=== PATIENT | male | born 1960 | race Caucasian/White ===

== ENCOUNTER 2018-08-10 03:57 | Emergency (ER) | payer OTHER, SELFPAY ==
[2018-08-10 04:00] VITALS: BP 142/76; PULSE 78; RESP 22; TEMP 38.8; O2SAT 96; BMI 27.8
[2018-08-10] MEDS: ACETAMINOPHEN 325 MG TABLET 650 MG PO (04:14)
--- NOTE | 2018-08-10 04:28 | ED.URI ---
HPI - URI/Sore Throat General Chief Complaint: Upper Respiratory Symptoms Stated Complaint: THINKS FLU CHEST CONGESTION NAUSEA Time Seen by Provider: 08/10/18 04:11 Source: patient Mode of arrival: ambulatory Limitations: no limitations History of Present Illness HPI Narrative: Patient is a 57-year-old male who presents with high-grade fever upper respiratory symptoms and some nausea. It has been ongoing for the last 5 days. His now also has symptoms. He denies any shortness of breath but has significant body aches. The currently febrile last dose of ibuprofen was about 4:00 p.m.. Complaint: fever and nasal congestion Onset (ago): day(s) (4) Severity: severe Relieving factors: nothing Related Data Previous Rx's Medication Instructions Recorded ondansetron 4 mg PO Q6-8H PRN #10 tab 08/10/18 Allergies Allergy/AdvReac Type Severity Reaction Status Date / Time No Known Drug Allergies Allergy Verified 08/10/18 04:23 Review of Systems Review of Systems ROS Unobtainable: All systems reviewed & are unremarkable except as noted in HPI and below Constitutional Reports body ache(s), Reports chills, Reports headache(s), Reports lethargy and Reports malaise ENT Ears, Nose, Mouth, and Throat: Reports headache(s) Cardiovascular Denies chest pain, Denies irregular heart rhythm, Denies lightheadedness, Denies palpitations and Denies orthopnea Respiratory Denies change in phlegm color, Reports cough, Denies hemoptysis and Denies wheezing Gastrointestinal Gastrointestinal: Denies abdominal pain, Denies change in bowel habits, Denies diarrhea, Denies nausea and Denies vomiting Musculoskeletal Denies back pain, Denies muscle weakness, Denies numbness and Denies tingling Integumentary/Breasts Denies pruritus, Denies erythema, Denies rash and Denies wounds Neurologic Reports headache(s), Denies numbness and Denies tingling Endocrine Denies palpitations Allergic/Immunologic Denies wheezing PFSH Medical History Hypertension (Acute) Social History marital status: Smoking Status: Never smoker alcohol intake: never substance use type: does not use Social History marital status: Smoking Status: Never smoker alcohol intake: never substance use type: does not use Exam Initial Vital Signs Initial Vital Signs: Vital Signs Temperature 102 F H 08/10/18 04:00 Pulse Rate 78 08/10/18 04:00 Respiratory Rate 22 08/10/18 04:00 Blood Pressure 142/76 H 08/10/18 04:00 Pulse Oximetry 96 08/10/18 04:00 GENERAL: Middle-aged male appears to not feel well curled on gurney alert and oriented easily arousable HEENT: Head atraumatic,EOMI, pupils reactive neck is supple CARDIOVASCULAR: Regular rate and rhythm without murmurs, rubs or gallops. RESPIRATORY: Breath sounds equal bilaterally, no wheezes rales or rhonchi. ABDOMEN: Soft, nontender. Normoactive bowel sounds all 4 quadrants. No guarding or rebound. EXTREMITIES: Normal range of motion, no clubbing or edema. Neurovascularly intact NEUROLOGICAL: Alert and oriented x4.Normal gait and speech. SKIN: Warm, dry, no laceration, no petechiae, no rashes or lesions. Course Orders Ordered: ED Orders 08/10/18 04:04 FLU A and B [Influenza A and B by PCR Rapid] Stat Discontinued Medications Acetaminophen (Tylenol) 650 mg PO NOW ONE Stop: 08/10/18 04:12 Last Admin: 08/10/18 04:14 Dose: 650 mg Ketorolac Tromethamine (Toradol) 60 mg IM NOW ONE Stop: 08/10/18 04:26 Last Admin: 08/10/18 04:50 Dose: 60 mg Ondansetron HCl (Zofran Odt) 4 mg SL NOW ONE Stop: 08/10/18 04:26 Last Admin: 08/10/18 04:50 Dose: 4 mg Vital Signs - 8 hr 08/10/18 04:00 Temperature 102 F H Pulse Rate 78 Respiratory Rate 22 Blood Pressure 142/76 H Pulse Oximetry 96 [facility] - URI/Sore Throat Lab Data Attestation: I reviewed the patient's lab results. Lab Results 08/10/18 Range/Units 04:04 Influenza A & B (PCR) Positive, type a A (Negative) [facility] Narrative Medical decision making narrative: Discussed treatment for influenza. Discharge Plan Departure Patient Disposition: Home Clinical Impression: Influenza A Instructions: DI for Influenza -- Adult Activity Restrictions/Additional Instructions: *You have been diagnosed with influenza *What to do: Fever control, increase fluid intake with Gatorade or Gatorade like substance *Continue to take medications as directed Ibuprofen 600 mg every 6 hr if needed for pain or fever Tylenol 650 mg every 4-6 hours if needed for pain or fever Zofran 4 mg every 6-8 hours if needed for nausea or vomiting *Follow up with your primary care provider in 2-3 days *Return to ER if you should have increased shortness of breath, productive cough, severe headache or neck pain or any new, worsening or concerning symptoms Prescriptions: New ondansetron 4 mg tablet,disintegrating 4 mg PO Q6-8H PRN (Reason: nausea and vomiting) Qty: 10 RF: 0
[2018-08-10] MEDS: KETOROLAC 60 MG/2 ML VIAL IM (04:50)
[2018-08-10] MEDS: ONDANSETRON 4 MG ODT SL (04:50)
[2018-08-10 05:17] VITALS: BP 119/66; PULSE 76; RESP 18; TEMP 37.2; O2SAT 98
== END 2018-08-10 05:18 | disposition home or self-care (01) ==
PROVIDERS: Emergency Provider Emergency Medicine
DX: J11.1 Influenza due to unidentified influenza virus with other respiratory manifestations (principal)
CPT/HCPCS: 87400; 96372; 99282; 99283; J1885

== ENCOUNTER 2018-08-12 17:26 | Inpatient (IN) | payer OTHER, SELFPAY ==
[2018-08-12] VITALS (11 sets, daily range): BP systolic 105–137; BP diastolic 66–72; PULSE 75–84; RESP 15–30; TEMP 36.6–37.2; O2SAT 69–100; BMI 26.4
--- NOTE | 2018-08-12 | DI.ECHO.S_ITS ---
[facility]---------+ [facility] +---------+ : : [address] : [place] : : : : [id number] : : : : Phone: [phone] Echocardiogram Report + + :Name: CRIS ADAM Study Date: 08/13/2018 Height: 71 in : :[facility] Weight: 190 lb : : Gender: Male BSA: 2.1 m2 : :: 1960 Age: 57 yrs BP: 103/70 mmHg: :Reason For Study: Influenza : : Performed By: Chiquita Jimenez : :Referring: ALEX LALA : + + Interpretation Summary Normal left ventricle size with ejection fraction 60-65%. Mildly dilated left atrium. Mild mitral regurgitation. Procedure: A two-dimensional transthoracic echocardiogram with color flow and Doppler was performed. The study quality was technically good. There is no prior echocardiogram noted for this patient. The patient was in normal sinus rhythm during the exam. Left Ventricle: The left ventricle is normal in size. There is normal left ventricular wall thickness. The ejection fraction is estimated to be 60-65%. There are no focal wall motion abnormalities. Diastolic parameters suggest probable normal left ventricular diastolic function and normal filling pressures. Right Ventricle: The right ventricle grossly appears normal in size with probable normal systolic function. Atria: The left atrium is mildly dilated. Right atrial size is normal. The interatrial septum is intact with no evidence for an atrial septal defect. Mitral Valve: The mitral valve is grossly normal. There is mild mitral regurgitation. Aortic Valve: The aortic valve is trileaflet. The aortic valve opens well. No aortic regurgitation is present. Tricuspid Valve: The tricuspid valve is normal in structure and function. There is a trace or physiologic amount of tricuspid regurgitation. The right ventricular systolic pressure is estimated to be at least 30 mmHg based on an estimated right atrial pressure of 8 mm Hg. Pulmonic Valve: The pulmonic valve is not well seen, but is grossly normal. There is trace pulmonic regurgitation. Great Vessels: The aortic root is normal size. The dimensions of the ascending aorta are normal. The aortic arch is normal in size. The IVC is of normal diameter and collapses less than 50% with a sniff. This suggests a right atrial pressure of 8 mm Hg. Pericardium/ Pleura There is no pericardial effusion. MMode/2D Measurements & Calculations LVIDd: 5.0 cm Ao root diam: 3.3 cm LVIDs: 2.7 cm asc Aorta Diam: 2.9 cm FS: 45.0 % Ao Arch Diam (Prox Trans): 3.0 cm EPSS: 0.53 cm IVSd: 1.2 cm LVPWd: 0.98 cm LV parks. diameter/BSA (cm/m^2): 2.4 LV sys. diameter/BSA (cm/m^2): 1.3 LA dimension: 3.8 cm RA long axis: 5.4 cm LA A2 area: 23.0 cm2 RA area: 19.3 cm2 LA A4 area: 26.4 cm2 RA vol: 58.9 ml LA length (vol): 5.9 cm RA : 28.6 ml/m2 LA vol: 87.0 ml IVC diam: 2.1 cm LA vol index: 42.2 ml/m2 RVDd major: 5.4 cm RVD1 (basal): 3.7 cm RVD2 (mid): 3.2 cm Doppler Measurements & Calculations Ao V2 max: 150.8 cm/sec MV E max oliver: 98.5 cm/sec Ao V2 mean: 94.1 cm/sec MV A max oliver: 71.1 cm/sec Ao max P.1 mmHg MV E/A: 1.4 Ao mean P.3 mmHg Med Peak E' Oliver: 10.2 cm/sec Ao V2 VTI: 30.8 cm E/E' med: 9.6 Lat Peak E' Oliver: 10.8 cm/sec E/E' lat: 9.1 E/e' average: 9.4 MV dec time: 0.20 sec MV P1/2t: 60.5 msec TR max oliver: 236.8 cm/sec MV P1/2t max oliver: 98.9 cm/sec TR max P.4 mmHg MVA(P1/2t): 3.6 cm2 PA V2 max: 118.1 cm/sec PA V2 mean: 79.3 cm/sec PA mean P.9 mmHg PA Accel Time: 0.16 sec Electronically signed by: Merle Wheat on Reading Physician:08/13/2018 11:14 AM
--- NOTE | 2018-08-12 17:45 | DI.RAD.S_ITS ---
PROCEDURE: XR CHEST 1V INDICATIONS: shortness of breath, hypoxia, difficulty breathing influenza TECHNIQUE: One view of the chest was acquired. COMPARISON: None. FINDINGS: Surgical changes and devices: None. Lungs and pleura: Bilateral multifocal areas of consolidation involving the upper and lower lobes.. No pleural effusions or pneumothorax. There are scattered groundglass opacities Mediastinum: Mediastinal contours appear normal. Heart size is normal. Bones and chest wall: No suspicious bony lesions. Overlying soft tissues appear unremarkable. IMPRESSION: Multifocal bilateral areas of consolidation presumably pneumonia although recommend clinical correlation. Atypical/viral etiologies are differential. Cannot exclude developing diffuse alveolar damage/ARDS. Dictated by: Santo Spears M.D. on 08/12/2018 at 19:02 Approved by: Santo Spears M.D. on 08/12/2018 at 19:05
[2018-08-12 18:01] LABS: INR 1.2 (0.9-1.3); Prothrombin Time 13.3 SECONDS (10.1-12.7)
--- NOTE | 2018-08-12 18:03 | ED_ITS ---
HPI - Fever General Chief Complaint: Fever Stated Complaint: states severe flu Time Seen by Provider: 08/12/18 17:44 Source: patient Mode of arrival: ambulatory Limitations: no limitations History of Present Illness HPI Narrative: Patient is a 57-year-old male who arrives the Emergency Department today for evaluation of generalized weakness and problems breathing. Was seen here in the emergency department 2 days ago after having 4-5 days of body aches and fever. She was diagnosed with influenza. Was not discharged home with Tamiflu secondary to his lack of other medical conditions and also the length of time that he had been having symptoms. He states that since Monday especially over the past 24 hr he has had worsening symptoms to include dyspnea on exertion. No chest pain. Has not tried anything for his symptoms prior to arrival. Related Data Home Medications Medication Instructions Recorded Confirmed atorvastatin 40 mg PO DAILY 08/12/18 08/12/18 losartan 50 mg PO DAILY 08/12/18 08/12/18 Previous Rx's Medication Instructions Recorded ondansetron 4 mg PO Q6-8H PRN #10 tab 08/10/18 Allergies Allergy/AdvReac Type Severity Reaction Status Date / Time No Known Drug Allergies Allergy Verified 08/10/18 04:23 Review of Systems Constitutional Reports fatigue and Reports fever(s) Eyes Denies diplopia ENT Ears, Nose, Mouth, and Throat: Denies vertigo and Denies dizziness Cardiovascular Denies chest pain, Reports dyspnea and Reports dyspnea on exertion Respiratory Reports dyspnea, Reports dyspnea on exertion and Denies wheezing Gastrointestinal Gastrointestinal: Denies abdominal pain, Denies nausea and Denies vomiting Genitourinary Denies dysuria Musculoskeletal Denies myalgias and Denies arthralgias Integumentary/Breasts Denies rash Neurologic Denies vertigo and Denies dizziness Endocrine Reports fatigue Hematologic/Lymphatic Denies easy bleeding and Denies easy bruising Allergic/Immunologic Denies urticaria and Denies wheezing PFSH Medical History Hypertension (Acute) Social History marital status: Smoking Status: Never smoker alcohol intake: never substance use type: does not use Social History marital status: Smoking Status: Never smoker alcohol intake: never substance use type: does not use Exam Initial Vital Signs Initial Vital Signs: Vital Signs Pulse Rate 81 08/12/18 17:35 Respiratory Rate 20 08/12/18 17:35 Pulse Oximetry 69 L 08/12/18 17:35 Const General: cooperative, No comfortable, well groomed, in distress and ill appearing Orientation: alert, awake and oriented x3 HENMT Head: normal to inspection and normocephalic Nose: external nose normal Eyes Pupils: PERRL EOM: EOM intact bilaterally Chest Chest: normal inspection of the chest Resp Effort & Inspection: labored, respiratory distress, no retractions, tachypneic and no use of accessory muscles Auscultation: rhonchi Cardio Rate: regular rate Rhythm: regular rhythm Pulses: radial pulses present GI Inspection: non-distended Palpation: No soft, No firm and No tender Back/Spine/Pelvis Back: normal to inspection Skin Lesions: no lesions Rashes: no rashes Neuro General: alert, awake and oriented x3 Cognition: normal cognition Speech: speech normal Gait: normal gait Motor: muscle tone normal throughout Extrem General: normal to inspection, capillary refill normal and No cyanosis Psych Appearance: grossly normal and well kempt Course Orders Ordered: ED Orders 08/12/18 17:40 B Type Natriuretic Peptide Stat Complete Blood Count AUTO DIFF Stat Comprehensive Metabolic Panel Stat Lactate (Lactic Acid) Stat Magnesium Stat Partial Thromboplastin Time Stat Procalcitonin Stat Prothrombin Time INR Stat Troponin & CK Cardiac Panel Stat 08/12/18 17:44 Consult to Respiratory Therapy Evaluate & Treat EKG-12 Lead Stat 08/12/18 17:45 XR chest 1V Stat 08/12/18 17:46 Arterial Blood Gas Stat 08/12/18 17:52 Blood Culture Stat 08/12/18 18:00 Arterial Blood Gas Stat 08/12/18 18:57 CT angio chest PE protocol Stat Sodium Chloride (Normal Saline 0.9%) 1,000 mls @ 125 mls/hr IV CONT CANDIDA Last Admin: 08/12/18 18:17 Dose: 125 mls/hr Discontinued Medications Albuterol (Ventolin) 2.5 mg INH NOW ONE Stop: 08/12/18 18:25 Last Admin: 08/12/18 18:25 Dose: 2.5 mg Albuterol (Ventolin) 2.5 mg INH Q20M [facility] Stop: 08/12/18 19:11 Albuterol/Ipratropium (Duoneb) 3 ml INH NOW ONE Stop: 08/12/18 17:45 Furosemide (Lasix) 40 mg IV NOW ONE Stop: 08/12/18 17:45 Last Admin: 08/12/18 18:15 Dose: 40 mg Sodium Chloride (Normal Saline 0.9%) 1,000 mls @ 1,000 mls/hr IV BOLUS ONE Stop: 08/12/18 18:43 Last Admin: 08/12/18 18:55 Dose: Not Given Levofloxacin (Levaquin) 750 mg in 150 mls @ 100 mls/hr IV NOW ONE Stop: 08/12/18 19:40 Last Admin: 08/12/18 18:19 Dose: 100 mls/hr Methylprednisolone (Solu-Medrol 125 Mg Vial) 125 mg IV NOW ONE Stop: 08/12/18 17:45 Last Admin: 08/12/18 18:15 Dose: 125 mg Ondansetron HCl (Zofran) 4 mg IV NOW ONE Stop: 08/12/18 18:16 Last Admin: 08/12/18 18:17 Dose: 4 mg Oseltamivir Phosphate (Tamiflu) 75 mg PO NOW ONE Stop: 08/12/18 18:09 Last Admin: 08/12/18 18:19 Dose: 75 mg Vital Signs - 8 hr 08/12/18 17:35 08/12/18 17:41 08/12/18 18:00 Temperature 97.9 F Pulse Rate 81 78 76 Respiratory Rate 20 21 26 H Blood Pressure [Left Arm] 137/71 111/66 Pulse Oximetry 69 L 100 92 08/12/18 18:26 08/12/18 19:41 Temperature Pulse Rate 84 Respiratory Rate 16 21 Blood Pressure [Left Arm] Pulse Oximetry 96 MDM - Fever Lab Data Attestation: I reviewed the patient's lab results. Result diagrams: 08/12/18 17:40 08/12/18 17:40 Lab Results 08/12/18 08/12/18 08/12/18 Range/Units 17:40 17:40 17:40 WBC 6.2 (4.5-11.0) X10^3/uL RBC 5.58 (4.5-5.9) X10^6/uL Hgb 16.2 (13.5-17.5) g/dL Hct 46.1 (41-53) % MCV 82.7 (80-100) fL MCH 29.1 (26-34) PG MCHC 35.2 (30-36) % RDW 13.4 (11.6-14.8) % Plt Count 170 (150-400) X10^3/uL Neut % (Auto) 83.6 H (50-75) % Lymph % (Auto) 11.2 L (25-40) % Harvey % (Auto) 5.0 (3-14) % Eos % (Auto) 0.0 L (2-4) % Baso % (Auto) 0.2 (0-2) % Neut # (Auto) 5200 (8611-4635) /uL Lymph # (Auto) 700 L (7862-6152) /uL Harvey # (Auto) 300 (0-900) /uL Eos # (Auto) 0 (0-450) /uL Baso # (Auto) 0 (0-100) /uL PT 13.3 H (10.1-12.7) SECONDS INR 1.2 (0.9-1.3) APTT 33 (26.4-36.2) SECONDS ABG pH (7.35-7.45) ABG pCO2 (35-45) mmHg ABG pO2 (80-100) mmHg ABG HCO3 (22-26) mmol/L ABG Total CO2 (21-31) mmol/L ABG O2 Saturation (95-100) % ABG Base Excess (-2-2) mmol/L FiO2 Sodium (137-145) mmol/L Potassium (3.4-5.1) mmol/L Chloride (98-107) mmol/L Carbon Dioxide (22-32) mmol/L BUN (9-20) mg/dL Creatinine (0.66-1.25) mg/dL Estimated GFR (>60) mL/min BUN/Creatinine Ratio (6-22) Glucose (70-100) mg/dL Lactate (0.7-2.1) mmol/L Calcium (8.4-10.2) mg/dL Magnesium 1.9 (1.6-2.3) mg/dL Total Bilirubin (0.2-1.3) mg/dL AST (17-59) IU/L ALT (21-72) IU/L Alkaline Phosphatase (38-126) U/L Total Creatine Kinase 257 H (55-170) U/L CK-MB (CK-2) 2.44 H (<2.37) ng/mL CK-MB (CK-2) Rel Index 0.9 L (1.5-5.0) % Troponin I 0.018 (0.01-0.034) ng/mL B-Natriuretic Peptide 108 H (<100) Total Protein (6.3-8.2) g/dL Albumin (3.5-5.0) g/dL Globulin (1.7-4.1) g/dL Albumin/Globulin Ratio (1.0-2.8) Procalcitonin (<0.5) ng/mL 08/12/18 08/12/18 08/12/18 Range/Units 17:40 17:40 17:40 WBC (4.5-11.0) X10^3/uL RBC (4.5-5.9) X10^6/uL Hgb (13.5-17.5) g/dL Hct (41-53) % MCV (80-100) fL MCH (26-34) PG MCHC (30-36) % RDW (11.6-14.8) % Plt Count (150-400) X10^3/uL Neut % (Auto) (50-75) % Lymph % (Auto) (25-40) % Harvey % (Auto) (3-14) % Eos % (Auto) (2-4) % Baso % (Auto) (0-2) % Neut # (Auto) (9504-5351) /uL Lymph # (Auto) (6142-4475) /uL Harvey # (Auto) (0-900) /uL Eos # (Auto) (0-450) /uL Baso # (Auto) (0-100) /uL PT (10.1-12.7) SECONDS INR (0.9-1.3) APTT (26.4-36.2) SECONDS ABG pH (7.35-7.45) ABG pCO2 (35-45) mmHg ABG pO2 (80-100) mmHg ABG HCO3 (22-26) mmol/L ABG Total CO2 (21-31) mmol/L ABG O2 Saturation (95-100) % ABG Base Excess (-2-2) mmol/L FiO2 Sodium 133 L (137-145) mmol/L Potassium 3.3 L (3.4-5.1) mmol/L Chloride 92 L (98-107) mmol/L Carbon Dioxide 32 (22-32) mmol/L BUN 11 (9-20) mg/dL Creatinine 0.80 (0.66-1.25) mg/dL Estimated GFR > 60.0 (>60) mL/min BUN/Creatinine Ratio 13.8 (6-22) Glucose 105 H (70-100) mg/dL Lactate 1.5 (0.7-2.1) mmol/L Calcium 8.0 L (8.4-10.2) mg/dL Magnesium (1.6-2.3) mg/dL Total Bilirubin 0.9 (0.2-1.3) mg/dL AST 97 H (17-59) IU/L ALT 73 H (21-72) IU/L Alkaline Phosphatase 65 (38-126) U/L Total Creatine Kinase (55-170) U/L CK-MB (CK-2) (<2.37) ng/mL CK-MB (CK-2) Rel Index (1.5-5.0) % Troponin I (0.01-0.034) ng/mL B-Natriuretic Peptide (<100) Total Protein 6.7 (6.3-8.2) g/dL Albumin 3.5 (3.5-5.0) g/dL Globulin 3.2 (1.7-4.1) g/dL Albumin/Globulin Ratio 1.1 (1.0-2.8) Procalcitonin 0.17 (<0.5) ng/mL 08/12/18 Range/Units 18:00 WBC (4.5-11.0) X10^3/uL RBC (4.5-5.9) X10^6/uL Hgb (13.5-17.5) g/dL Hct (41-53) % MCV (80-100) fL MCH (26-34) PG MCHC (30-36) % RDW (11.6-14.8) % Plt Count (150-400) X10^3/uL Neut % (Auto) (50-75) % Lymph % (Auto) (25-40) % Harvey % (Auto) (3-14) % Eos % (Auto) (2-4) % Baso % (Auto) (0-2) % Neut # (Auto) (5569-8434) /uL Lymph # (Auto) (9537-5406) /uL Harvey # (Auto) (0-900) /uL Eos # (Auto) (0-450) /uL Baso # (Auto) (0-100) /uL PT (10.1-12.7) SECONDS INR (0.9-1.3) APTT (26.4-36.2) SECONDS ABG pH 7.52 H (7.35-7.45) ABG pCO2 37.4 (35-45) mmHg ABG pO2 77 L (80-100) mmHg ABG HCO3 30 H (22-26) mmol/L ABG Total CO2 31 (21-31) mmol/L ABG O2 Saturation 96 (95-100) % ABG Base Excess 7.0 H (-2-2) mmol/L FiO2 15 Sodium (137-145) mmol/L Potassium (3.4-5.1) mmol/L Chloride (98-107) mmol/L Carbon Dioxide (22-32) mmol/L BUN (9-20) mg/dL Creatinine (0.66-1.25) mg/dL Estimated GFR (>60) mL/min BUN/Creatinine Ratio (6-22) Glucose (70-100) mg/dL Lactate (0.7-2.1) mmol/L Calcium (8.4-10.2) mg/dL Magnesium (1.6-2.3) mg/dL Total Bilirubin (0.2-1.3) mg/dL AST (17-59) IU/L ALT (21-72) IU/L Alkaline Phosphatase (38-126) U/L Total Creatine Kinase (55-170) U/L CK-MB (CK-2) (<2.37) ng/mL CK-MB (CK-2) Rel Index (1.5-5.0) % Troponin I (0.01-0.034) ng/mL B-Natriuretic Peptide (<100) Total Protein (6.3-8.2) g/dL Albumin (3.5-5.0) g/dL Globulin (1.7-4.1) g/dL Albumin/Globulin Ratio (1.0-2.8) Procalcitonin (<0.5) ng/mL ABG Data Attestation: I personally reviewed and interpreted this ABG as follows: Interpretation: Respiratory alkalosis Imaging Data Chest x-ray: Radiologist's impression: PROCEDURE: XR CHEST 1V INDICATIONS: shortness of breath, hypoxia, difficulty breathing influenza TECHNIQUE: One view of the chest was acquired. COMPARISON: None. FINDINGS: Surgical changes and devices: None. Lungs and pleura: Bilateral multifocal areas of consolidation involving the upper and lower lobes.. No pleural effusions or pneumothorax. There are scattered gr oundglass opacities Mediastinum: Mediastinal contours appear normal. Heart size is normal. Bones and chest wall: No suspicious bony lesions. Overlying soft tissues appear unremarkable. IMPRESSION: Multifocal bilateral areas of consolidation presumably pneumonia although recommend clinical correlation. Atypical/viral etiologies are differential. Cannot exclude developing diffuse alveolar damage/ARDS. Dictated by: Santo Spears M.D. on 08/12/2018 at 19:02 Approved by: Santo Spears M.D. on 08/12/2018 at 19:05 CT scan - chest: Radiologist's impression: [place] [address] CT Scan Report Signed Patient: CRIS ADAM#: [id number] : 1960Acct:[id number] Age/Sex: 57 / MDate of Service: 08/12/18 Loc: ED Accession Number: [id number] Procedure: CT angio chest PE protocol Ordering Provider: Elvin Gutiérrez D.O. PROCEDURE: CT ANGIO CHEST PE PROTOCOL INDICATIONS: Chest pain, shortness of breath, tachycardia TECHNIQUE: After the administration of intravenous contrast, 2 mm thick sections acquired from the pulmonary apices to the posterior costophrenic angles. 3-dimensional maximum intensity projection (MIP) coronal and sagittal reformats were then acquired through the thorax. For radiation dose reduction, the following was used: automated exposure control, adjustment of mA and/or kV according to patient size. COMPARISON: [facility], CR, XR CHEST 1V, 08/12/2018, 18:29. FINDINGS: Image quality: Excellent. Pulmonary arteries: Pulmonary arteries are normal in size, and demonstrate no intraluminal filling defects to suggest central pulmonary embolism. Lungs and pleura: Trace bilateral pleural effusions with adjacent atelectasis. There are extensive bilateral widespread subpleural areas of consolidation and groundglass opacity. There is some bronchovascular distribution. Mediastinum: Heart size is normal, without pericardial effusion. Shotty mediastinal and hilar lymph nodes without definite pathologic size mediastinal or hilar adenopathy. Thoracic aorta is normal in caliber and enhancement. Esophagus is normal in caliber, without hiatal hernia. Bones and chest wall: No suspicious bony lesions. Ribs and thoracic spine appear intact throughout. Thyroid gland negative. No axillary or supraclavicular adenopathy. Abdomen: Visualized upper abdominal solid organs appear normal in the early arterial phase of enhancement. IMPRESSION: No evidence of pulmonary embolism. Extensive bilateral upper and lower lobe areas of consolidation and groundglass attenuation, suspicious for atypical/viral pneumonia. Other inflammatory etiologies and superimposed aspiration cannot be excluded. Recommend followup with PA and lateral chest radiographs in one month after treatment and if these persist repeat noncontrast chest CT to exclude underlying abnormal soft tissue. Dictated by: Santo Spears M.D. on 08/12/2018 at 19:42 Approved by: Santo Spears M.D. on 08/12/2018 at 19:46 ECG Data Attestation: I personally reviewed and interpreted this ECG as follows: Prior ECG tracings: not available for review Interpretation: Sinus rhythm next ventricular rate is 70 Normal axis Normal QRS Normal QTC No ST T wave changes MDM Narrative Medical decision making narrative: Patient arrived tachypneic and hypoxic. Initially required 15 L by non-rebreather to maintain oxygen saturation greater than 90. Given his recent diagnosis of flu my initial suspicion was a flu pneumonia. He was given oral Tamiflu. Given his clinical scenario he was also given Levaquin. Lasix was also ordered secondary to his crackles on exam. Chest x-ray was concerning for multifocal pneumonia versus ARDS. CT scan was obtained to rule out pulmonary embolism. We were able to wean him down to humidified high-flow nasal cannula. Patient states he feels much better. He stated that the albuterol nebulizer did not help him all that much. White count procalcitonin lactate unremarkable. Considered endocarditis however his symptoms or more consistent with a primary respiratory issue. Discussed the case with Dr. Toure with Internal Medicine who accepts the patient. Discussed admission with the patient and family at bedside L expressed understanding and agreement with plan. Discharge Plan Departure Patient Disposition: Admitted As Inpatient Clinical Impression: Influenza A, Acute respiratory distress, Hypoxia Pneumonia Qualifiers: Pneumonia type: due to influenza A virus Laterality: bilateral Lung location: unspecified part of lung Qualified Code(s): J10.00 - Influenza due to other identified influenza virus with unspecified type of pneumonia Admit Date/Time: 08/12/18 20:09 Admit Provider: Maegan Toure
[2018-08-12 18:04] LABS: PTT Partial Thromboplastin Tim 33 SECONDS (26.4-36.2)
[2018-08-12 18:06] LABS: Add Manual Diff / Slide Review NO; Alanine Aminotransferase 73 IU/L (21-72); Albumin 3.5 g/dL (3.5-5.0); Albumin Globulin Ratio 1.1 (1.0-2.8); Alkaline Phosphatase 65 U/L (38-126); Aspartate Aminotransferase 97 IU/L (17-59); BUN Creatinine Ratio 13.8 (6-22); Basophils Absolute Auto 0 /uL (0-100); Basophils Percent Auto 0.2 % (0-2); Bilirubin Total 0.9 mg/dL (0.2-1.3); Blood Urea Nitrogen 11 mg/dL (9-20); Carbon Dioxide 32 mmol/L (22-32); Chloride 92 mmol/L (98-107); Creatine Kinase 257 U/L (55-170); Eosinophils Absolute Auto 0 /uL (0-450); Estimated Glomerular Filt Rate > 60.0 mL/min (>60); Globulin 3.2 g/dL (1.7-4.1); Glucose 105 mg/dL (70-100); HEMOLYSIS < 15 (0-50); Hematocrit 46.1 % (41-53); Hemoglobin 16.2 g/dL (13.5-17.5); Lactate (Lactic Acid) 1.5 mmol/L (0.7-2.1); Lymphocytes Absolute Auto 700 /uL (1100-4500); Lymphocytes Percent Auto 11.2 % (25-40); Magnesium 1.9 mg/dL (1.6-2.3); Mean Corpuscular HGB Conc 35.2 % (30-36); Mean Corpuscular Hemoglobin 29.1 PG (26-34); Mean Corpuscular Volume 82.7 fL (80-100); Monocytes Absolute Auto 300 /uL (0-900); Neutrophils Absolute Auto 5200 /uL (1500-7000); Neutrophils Percent Auto 83.6 % (50-75); Platelet Count 170 X10^3/uL (150-400); Potassium 3.3 mmol/L (3.4-5.1); Red Blood Cell Count 5.58 X10^6/uL (4.5-5.9); Red Cell Distribution Width 13.4 % (11.6-14.8); Sodium 133 mmol/L (137-145); Total Protein 6.7 g/dL (6.3-8.2); White Blood Cell Count 6.2 X10^3/uL (4.5-11.0)
[2018-08-12 18:13] LABS: B Type Natriuretic Peptide 108 (<100)
[2018-08-12] MEDS: FUROSEMIDE 40 MG/4 ML VIAL IV (18:15)
[2018-08-12] MEDS: methylPREDNISolone 125 MG/2 ML VIAL IV (18:15)
[2018-08-12 18:17] LABS: Troponin I 0.018 ng/mL (0.01-0.034)
[2018-08-12] MEDS: SODIUM CHLORIDE 0.9% 1,000 ML 125 ML IV (18:17)
[2018-08-12] MEDS: ONDANSETRON 4 MG/2 ML INJ IV (18:17)
[2018-08-12] MEDS: OSELTAMIVIR 75 MG CAPSULE PO (18:19)
[2018-08-12] MEDS: levoFLOXacin 750 MG/150 ML PIGGYBACK 100 MG IV (18:19)
[2018-08-12 18:21] LABS: CKMB % Relative Index 0.9 % (1.5-5.0); Creatine Kinase MB 2.44 ng/mL (<2.37); Procalcitonin 0.17 ng/mL (<0.5)
[2018-08-12] MEDS: ALBUTEROL 2.5 MG/3 ML NEB (ADULT) INH (18:25)
[2018-08-12 18:31] LABS: Fractionated Inspired Oxygen 15; HCO3 ABG 30 mmol/L (22-26); Oxygen Saturation ABG 96 % (95-100); PCO2 ABG 37.4 mmHg (35-45); PO2 ABG 77 mmHg (80-100); TCO2 ABG 31 mmol/L (21-31)
--- NOTE | 2018-08-12 18:57 | DI.CT.S_ITS ---
PROCEDURE: CT ANGIO CHEST PE PROTOCOL INDICATIONS: Chest pain, shortness of breath, tachycardia TECHNIQUE: After the administration of intravenous contrast, 2 mm thick sections acquired from the pulmonary apices to the posterior costophrenic angles. 3-dimensional maximum intensity projection (MIP) coronal and sagittal reformats were then acquired through the thorax. For radiation dose reduction, the following was used: automated exposure control, adjustment of mA and/or kV according to patient size. COMPARISON: [facility], CR, XR CHEST 1V, 08/12/2018, 18:29. FINDINGS: Image quality: Excellent. Pulmonary arteries: Pulmonary arteries are normal in size, and demonstrate no intraluminal filling defects to suggest central pulmonary embolism. Lungs and pleura: Trace bilateral pleural effusions with adjacent atelectasis. There are extensive bilateral widespread subpleural areas of consolidation and groundglass opacity. There is some bronchovascular distribution. Mediastinum: Heart size is normal, without pericardial effusion. Shotty mediastinal and hilar lymph nodes without definite pathologic size mediastinal or hilar adenopathy. Thoracic aorta is normal in caliber and enhancement. Esophagus is normal in caliber, without hiatal hernia. Bones and chest wall: No suspicious bony lesions. Ribs and thoracic spine appear intact throughout. Thyroid gland negative. No axillary or supraclavicular adenopathy. Abdomen: Visualized upper abdominal solid organs appear normal in the early arterial phase of enhancement. IMPRESSION: No evidence of pulmonary embolism. Extensive bilateral upper and lower lobe areas of consolidation and groundglass attenuation, suspicious for atypical/viral pneumonia. Other inflammatory etiologies and superimposed aspiration cannot be excluded. Recommend followup with PA and lateral chest radiographs in one month after treatment and if these persist repeat noncontrast chest CT to exclude underlying abnormal soft tissue. Dictated by: Santo Spears M.D. on 08/12/2018 at 19:42 Approved by: Santo Spears M.D. on 08/12/2018 at 19:46
--- NOTE | 2018-08-12 21:26 | PM.HP.1 ---
History of Present Illness Date Patient Seen: 08/12/18 Chief complaint: states severe flu Narrative: THE PATIENT IS A 57-YEAR-OLD MALE WHO PRESENTS AT THIS TIME FOR ACUTE HYPOXIC RESPIRATORY FAILURE. PATIENT WAS IN HIS USUAL STATE OF HEALTH UNTIL ABOUT 1 WEEK PRIOR TO ADMISSION. HE DEVELOPED COUGH SHORTNESS OF BREATH AND ACHY PAINS. SYMPTOMS STARTED LAST MONDAY. THEY BECAME PROGRESSIVELY WORSE. PATIENT FELT QUITE ILL ON MONDAY AND MONDAY OF LAST WEEK AND PRESENTED TO THE EMERGENCY ROOM FOR EVALUATION. IN THE EMERGENCY ROOM THE PATIENT WAS DIAGNOSED WITH INFLUENZA A. HE WAS OUTSIDE OF THE WINDOW HE WAS NOT GIVEN TAMIFLU. HE STATES HE FELT BETTER AFTER 1 DOSE OF TORADOL. HE SUBSEQUENTLY BEGAN FEELING ACHY SHORT OF BREATH WITH FEVER HEADACHES NAUSEA AND DIARRHEA. SYMPTOMS PROGRESSED AND HE PRESENTED BACK TO THE EMERGENCY ROOM FOR EVALUATION. IN THE EMERGENCY ROOM THE PATIEN FEELS ILL BUT SOMEWHAT BETTER. HE DENIES ANY HEMOPTYSIS. T WAS FOUND TO BE MARKEDLY HYPOXIC. HIS O2 SAT ON ROOM AIR WAS IN THE 70% RANGE. THE PATIENT REQUIRED A NON-REBREATHER MASK. HE WAS ULTIMATELY TAPERED TO 15 L OF HIGH-FLOW OXYGEN. HIS CHEST X-RAY SHOWED A MULTIFOCAL PNEUMONIA. CT SCAN OF THE CHEST ALSO CONFIRMED A MULTIFOCAL PNEUMONIA. THERE WAS NO EVIDENCE OF PULMONARY EMBOLI. PATIENT WAS GIVEN 1 DOSE OF LASIX. HE REPORTS CHEST PAIN WITH DEEP INSPIRATION. HE HAS A NONPRODUCTIVE COUGH. HE HAS NO HISTORY OF ASTHMA. HE IS A NONSMOKER. THE PATIENT IS ADMITTED TO THE HOSPITAL FOR FURTHER EVALUATION. THE PATIENT IS ADOPTED AND FAMILY HISTORY IS UNOBTAINABLE. Patient History Medical History Hyperlipidemia (Acute) Hypertension (Acute) Social History marital status: Smoking Status: Never smoker alcohol intake: never substance use type: does not use Family & Social History Tobacco & Substance use: Smoking Status Never smoker alcohol intake never Meds Home Medications Medication Instructions Recorded Confirmed Type ondansetron 4 mg PO Q6-8H PRN #10 tab 08/10/18 08/12/18 Rx atorvastatin 40 mg PO DAILY 08/12/18 08/12/18 History losartan 50 mg PO DAILY 08/12/18 08/12/18 History Allergies Allergy/AdvReac Type Severity Reaction Status Date / Time Penicillins Allergy UNKNOWN Verified 08/12/18 21:29 Review of Systems Review of Systems All systems reviewed & are unremarkable except as noted in HPI and below Exam Vital Signs (past 8 hours): - 08/12/18 17:35 08/12/18 17:41 08/12/18 18:00 Temperature 97.9 F Pulse Rate 81 78 76 Respiratory Rate 20 21 26 H Blood Pressure Blood Pressure [Left Arm] 137/71 111/66 Pulse Oximetry 69 L 100 92 08/12/18 18:26 08/12/18 19:41 08/12/18 21:16 Temperature Pulse Rate 84 77 Respiratory Rate 16 21 15 Blood Pressure 105/69 Blood Pressure [Left Arm] Pulse Oximetry 96 95 Fraction of Inspired Oxygen 65 Oxygen Delivery Method Heated High Flow Oxygen Flow Rate 45 Narrative Exam Narrative: PLEASANT ILL-APPEARING MALE WHO APPEARS SOMEWHAT SHORT OF BREATH. HEENT: NORMOCEPHALIC ATRAUMATIC, EXTRAOCULAR MUSCLES ARE INTACT, SCLERAE ANICTERIC, OROPHARYNX IS CLEAR, MOIST MUCOUS MEMBRANES, NECK IS SUPPLE, THERE IS NO ADENOPATHY, LUNGS: DECREASED BREATH SOUNDS. BIBASILAR CRACKLES NOTED. CARDIAC EXAM: REGULAR RATE AND RHYTHM NORMAL S1 AND S2 NO MURMURS RUBS OR GALLOPS ABDOMEN: SOFT NONTENDER NONDISTENDED NO HEPATOSPLENOMEGALY EXTREMITIES: NO EDEMA SKIN: NO LESION NEURO EXAM: CRANIAL NERVES ARE INTACT, STRENGTH SYMMETRIC AND EQUAL, SENSATION GROSSLY INTACT, REFLEXES ARE EQUAL, Objective Labs Result Diagrams: 08/12/18 17:40 08/12/18 17:40 Labs: Laboratory Results - last 24 hr 08/12/18 08/12/18 08/12/18 17:40 17:40 17:40 WBC 6.2 RBC 5.58 Hgb 16.2 Hct 46.1 MCV 82.7 MCH 29.1 MCHC 35.2 RDW 13.4 Plt Count 170 Neut % (Auto) 83.6 H Lymph % (Auto) 11.2 L Charles % (Auto) 5.0 Eos % (Auto) 0.0 L Baso % (Auto) 0.2 Neut # (Auto) 5200 Lymph # (Auto) 700 L Charles # (Auto) 300 Eos # (Auto) 0 Baso # (Auto) 0 PT 13.3 H INR 1.2 APTT 33 ABG pH ABG pCO2 ABG pO2 ABG HCO3 ABG Total CO2 ABG O2 Saturation ABG Base Excess FiO2 Sodium Potassium Chloride Carbon Dioxide BUN Creatinine Estimated GFR BUN/Creatinine Ratio Glucose Lactate Calcium Magnesium 1.9 Total Bilirubin AST ALT Alkaline Phosphatase Total Creatine Kinase 257 H CK-MB (CK-2) 2.44 H CK-MB (CK-2) Rel Index 0.9 L Troponin I 0.018 B-Natriuretic Peptide 108 H Total Protein Albumin Globulin Albumin/Globulin Ratio Procalcitonin 08/12/18 08/12/18 08/12/18 17:40 17:40 17:40 WBC RBC Hgb Hct MCV MCH MCHC RDW Plt Count Neut % (Auto) Lymph % (Auto) Charles % (Auto) Eos % (Auto) Baso % (Auto) Neut # (Auto) Lymph # (Auto) Charles # (Auto) Eos # (Auto) Baso # (Auto) PT INR APTT ABG pH ABG pCO2 ABG pO2 ABG HCO3 ABG Total CO2 ABG O2 Saturation ABG Base Excess FiO2 Sodium 133 L Potassium 3.3 L Chloride 92 L Carbon Dioxide 32 BUN 11 Creatinine 0.80 Estimated GFR > 60.0 BUN/Creatinine Ratio 13.8 Glucose 105 H Lactate 1.5 Calcium 8.0 L Magnesium Total Bilirubin 0.9 AST 97 H ALT 73 H Alkaline Phosphatase 65 Total Creatine Kinase CK-MB (CK-2) CK-MB (CK-2) Rel Index Troponin I B-Natriuretic Peptide Total Protein 6.7 Albumin 3.5 Globulin 3.2 Albumin/Globulin Ratio 1.1 Procalcitonin 0.17 08/12/18 18:00 WBC RBC Hgb Hct MCV MCH MCHC RDW Plt Count Neut % (Auto) Lymph % (Auto) Charles % (Auto) Eos % (Auto) Baso % (Auto) Neut # (Auto) Lymph # (Auto) Charles # (Auto) Eos # (Auto) Baso # (Auto) PT INR APTT ABG pH 7.52 H ABG pCO2 37.4 ABG pO2 77 L ABG HCO3 30 H ABG Total CO2 31 ABG O2 Saturation 96 ABG Base Excess 7.0 H FiO2 15 Sodium Potassium Chloride Carbon Dioxide BUN Creatinine Estimated GFR BUN/Creatinine Ratio Glucose Lactate Calcium Magnesium Total Bilirubin AST ALT Alkaline Phosphatase Total Creatine Kinase CK-MB (CK-2) CK-MB (CK-2) Rel Index Troponin I B-Natriuretic Peptide Total Protein Albumin Globulin Albumin/Globulin Ratio Procalcitonin Assessment & Plan Assessment Narrative: PATIENT IS A 57-YEAR-OLD MALE ADMITTED WITH ACUTE HYPOXIC RESPIRATORY FAILURE SECONDARY TO INFLUENZA A. THE PATIENT WILL BE EMPIRICALLY TREATED WITH ANTIBIOTICS TO RULE OUT BACTERIAL PNEUMONIA. VIRAL PANEL HAS BEEN OBTAINED. WILL CONTINUE OXYGEN, NEBULIZERS, ANTIVIRAL/TAMIFLU, ANTIBIOTICS. WILL REPEAT CHEST X-RAY IN THE MORNING. IN ADDITION WILL OBTAIN A CARDIAC ECHO TO RULE OUT CONGESTIVE HEART FAILURE. Plan Narrative: THE PATIENT WILL CONTINUE ON ATORVASTATIN FOR HIS HYPERLIPIDEMIA. GIVEN HIS SOMEWHAT LOW BLOOD PRESSURE WILL HOLD LOSARTAN AT THIS TIME. WILL PLACE THE PATIENT ON DVT PROPHYLAXIS. HE IS A FULL CODE AND WILL NOTE THAT HIS RECORD ACCORDINGLY. HYPERLIPIDEMIA, CHRONIC, PRESENT ON ADMISSION HYPERTENSION, CHRONIC, PRESENT ON ADMISSION. HYPOKALEMIA, ACUTE, PRESENT ON ADMISSION WILL REPLACE. HYPONATREMIA, ACUTE WILL CONTINUE TO FOLLOW
--- NOTE | 2018-08-12 21:54 | PC.NURSE ---
2100- Patient arrived to room 101 via stretcher from Emergency. Patient on heated high flow at 65% fi02. Saturation 97% respirations 18-22. Patient denies pain. Patient has IVF infusing. Patient has crackles throughout both lungs and is SOB at rest and with exertion. Patient is using the urinal to void. Patient is in NSR. Patient oriented to the room, is at bedside. Code word established as Frosty. Will monitor.
[2018-08-12 22:19] LABS: pH ABG 7.52 (7.35-7.45)
[2018-08-12] MEDS: KCL 40 MEQ IN NS 1,000 ML 125 MEQ IV (22:41)
[2018-08-12] MEDS: ENOXAPARIN 40 MG/0.4 ML SYRINGE SUBCUT (22:42)
[2018-08-13] VITALS (16 sets, daily range): BP systolic 96–126; BP diastolic 41–70; PULSE 64–72; RESP 7–30; TEMP 36.4–38.2; O2SAT 91–96
[2018-08-13 05:18] LABS: Add Manual Diff / Slide Review NO; Basophils Absolute Auto 0 /uL (0-100); Basophils Percent Auto 0.3 % (0-2); Eosinophils Absolute Auto 0 /uL (0-450); Hematocrit 41.4 % (41-53); Hemoglobin 14.4 g/dL (13.5-17.5); Lymphocytes Absolute Auto 300 /uL (1100-4500); Lymphocytes Percent Auto 6.6 % (25-40); Mean Corpuscular HGB Conc 34.7 % (30-36); Mean Corpuscular Hemoglobin 28.8 PG (26-34); Mean Corpuscular Volume 82.9 fL (80-100); Monocytes Absolute Auto 300 /uL (0-900); Monocytes Percent Auto 6.2 % (3-14); Neutrophils Absolute Auto 4100 /uL (1500-7000); Neutrophils Percent Auto 86.9 % (50-75); Platelet Count 160 X10^3/uL (150-400); Red Cell Distribution Width 13.5 % (11.6-14.8); White Blood Cell Count 4.7 X10^3/uL (4.5-11.0)
[2018-08-13 05:22] LABS: Alanine Aminotransferase 65 IU/L (21-72); Albumin 3.1 g/dL (3.5-5.0); Albumin Globulin Ratio 1.1 (1.0-2.8); Alkaline Phosphatase 54 U/L (38-126); Aspartate Aminotransferase 75 IU/L (17-59); BUN Creatinine Ratio 15.7 (6-22); Bilirubin Total 0.6 mg/dL (0.2-1.3); Blood Urea Nitrogen 11 mg/dL (9-20); Calcium 7.7 mg/dL (8.4-10.2); Carbon Dioxide 30 mmol/L (22-32); Chloride 96 mmol/L (98-107); Estimated Glomerular Filt Rate > 60.0 mL/min (>60); Globulin 2.9 g/dL (1.7-4.1); Glucose 168 mg/dL (70-100); HEMOLYSIS < 15 (0-50); Sodium 135 mmol/L (137-145)
--- NOTE | 2018-08-13 05:59 | DI.RAD.S_ITS ---
PROCEDURE: XR CHEST 1V INDICATIONS: MD order, Influenza TECHNIQUE: One view of the chest was acquired. COMPARISON: [facility], CR, XR CHEST 1V, 08/12/2018, 18:29. FINDINGS: Surgical changes and devices: None. Lungs and pleura: Patchy bilateral lung opacities stable compared to 08/12/2018 at 1829 hrs. Chest right sided pleural effusion as well. Mediastinum: Mediastinal contours appear normal. Heart size is normal. Bones and chest wall: No suspicious bony lesions. Overlying soft tissues appear unremarkable. IMPRESSION: Bilateral patchy lung opacities stable compared to 08/12/2017. Differential diagnosis includes multilobar pneumonia and ARDS. Dictated by: Lakisha Arrington MD, PhD on 08/13/2018 at 7:49 Approved by: Lakisha Arrington MD, PhD on 08/13/2018 at 7:50
--- NOTE | 2018-08-13 06:38 | PC.NURSE ---
Patient is alert and oriented x4, fatigued. Dozes with HHFNC at 65% keeping SpO2 > 92%, tachypneic 20s-30s, breath sounds dim with fine crackles R>L, denies pain. SR, BP stable, afebrile. Blood cultures drawn with am labs, CXR done. Remains in Droplet Precautions.
[2018-08-13] MEDS: KCL 40 MEQ IN NS 1,000 ML 125 MEQ IV (07:14)
[2018-08-13] MEDS: IBUPROFEN 600 MG TABLET PO (09:44)
[2018-08-13] MEDS: OSELTAMIVIR 75 MG CAPSULE PO ×2 (09:44→21:08)
--- NOTE | 2018-08-13 10:03 | P.PN_ITS ---
Subjective Date Patient Seen: 08/13/18 Interval history: Events reviewed patient seen and examined. He reports feeling significantly improved today. He is continuing to require high-flow oxygen. He is on heated oxygen at 55%. He has a poor appetite. He is only able to eat about 25% of his meals. He has a cough which is nonproductive. Patient was also noted to have low-grade fever this morning. He denies any chest pain at this time. Patient is a 57-year-old male who was admitted to the hospital yesterday for acute hypoxemic respiratory failure secondary to influenza A. His respiratory panel is pending at this time. Will continue empiric treatment with IV antibiotics. Will continue nebulizers and oxygen. Patient will continue on Tamiflu. Exam Vital Signs (past 8 hours): - 08/13/18 02:12 08/13/18 03:03 08/13/18 04:11 Temperature Pulse Rate 67 64 69 Respiratory Rate 7 L 30 H 16 Blood Pressure 109/54 L 96/56 L 101/55 L Pulse Oximetry 94 94 96 08/13/18 04:19 08/13/18 05:02 08/13/18 06:12 Temperature 98.4 F Pulse Rate 70 72 Respiratory Rate 21 28 H Blood Pressure 104/66 126/70 Pulse Oximetry 95 91 08/13/18 07:15 Temperature 100.7 F H Pulse Rate 65 Respiratory Rate Blood Pressure 101/56 L Pulse Oximetry 91 Fraction of Inspired Oxygen 60 Oxygen Delivery Method Heated High Flow Oxygen Flow Rate 45 Narrative Exam Narrative: Pleasant gentleman resting in bed. Although he has no evidence of respiratory distress he continues to require high-flow oxygen. Lungs: Decreased breath sounds with left basilar crackles Cardiac exam: Regular rate rhythm normal S1-S2 Abdomen: Soft nontender nondistended Extremities: No edema Objective Labs Result Diagrams: 08/13/18 04:50 08/13/18 04:50 Labs: Laboratory Results - last 24 hr 08/12/18 08/12/18 08/12/18 17:40 17:40 17:40 WBC 6.2 RBC 5.58 Hgb 16.2 Hct 46.1 MCV 82.7 MCH 29.1 MCHC 35.2 RDW 13.4 Plt Count 170 Neut % (Auto) 83.6 H Lymph % (Auto) 11.2 L [place] % (Auto) 5.0 Eos % (Auto) 0.0 L Baso % (Auto) 0.2 Neut # (Auto) 5200 Lymph # (Auto) 700 L [place] # (Auto) 300 Eos # (Auto) 0 Baso # (Auto) 0 PT 13.3 H INR 1.2 APTT 33 ABG pH ABG pCO2 ABG pO2 ABG HCO3 ABG Total CO2 ABG O2 Saturation ABG Base Excess FiO2 Sodium Potassium Chloride Carbon Dioxide BUN Creatinine Estimated GFR BUN/Creatinine Ratio Glucose Lactate Calcium Magnesium 1.9 Total Bilirubin AST ALT Alkaline Phosphatase Total Creatine Kinase 257 H CK-MB (CK-2) 2.44 H CK-MB (CK-2) Rel Index 0.9 L Troponin I 0.018 B-Natriuretic Peptide 108 H Total Protein Albumin Globulin Albumin/Globulin Ratio Procalcitonin Nasal Screen MRSA (PCR) 08/12/18 08/12/18 08/12/18 17:40 17:40 17:40 WBC RBC Hgb Hct MCV MCH MCHC RDW Plt Count Neut % (Auto) Lymph % (Auto) [place] % (Auto) Eos % (Auto) Baso % (Auto) Neut # (Auto) Lymph # (Auto) [place] # (Auto) Eos # (Auto) Baso # (Auto) PT INR APTT ABG pH ABG pCO2 ABG pO2 ABG HCO3 ABG Total CO2 ABG O2 Saturation ABG Base Excess FiO2 Sodium 133 L Potassium 3.3 L Chloride 92 L Carbon Dioxide 32 BUN 11 Creatinine 0.80 Estimated GFR > 60.0 BUN/Creatinine Ratio 13.8 Glucose 105 H Lactate 1.5 Calcium 8.0 L Magnesium Total Bilirubin 0.9 AST 97 H ALT 73 H Alkaline Phosphatase 65 Total Creatine Kinase CK-MB (CK-2) CK-MB (CK-2) Rel Index Troponin I B-Natriuretic Peptide Total Protein 6.7 Albumin 3.5 Globulin 3.2 Albumin/Globulin Ratio 1.1 Procalcitonin 0.17 Nasal Screen MRSA (PCR) 08/12/18 08/12/18 08/13/18 18:00 21:30 04:50 WBC 4.7 RBC 5.00 Hgb 14.4 Hct 41.4 MCV 82.9 MCH 28.8 MCHC 34.7 RDW 13.5 Plt Count 160 Neut % (Auto) 86.9 H Lymph % (Auto) 6.6 L [place] % (Auto) 6.2 Eos % (Auto) 0.0 L Baso % (Auto) 0.3 Neut # (Auto) 4100 Lymph # (Auto) 300 L [place] # (Auto) 300 Eos # (Auto) 0 Baso # (Auto) 0 PT INR APTT ABG pH 7.52 H ABG pCO2 37.4 ABG pO2 77 L ABG HCO3 30 H ABG Total CO2 31 ABG O2 Saturation 96 ABG Base Excess 7.0 H FiO2 15 Sodium Potassium Chloride Carbon Dioxide BUN Creatinine Estimated GFR BUN/Creatinine Ratio Glucose Lactate Calcium Magnesium Total Bilirubin AST ALT Alkaline Phosphatase Total Creatine Kinase CK-MB (CK-2) CK-MB (CK-2) Rel Index Troponin I B-Natriuretic Peptide Total Protein Albumin Globulin Albumin/Globulin Ratio Procalcitonin Nasal Screen MRSA (PCR) Negative for mrsa 08/13/18 04:50 WBC RBC Hgb Hct MCV MCH MCHC RDW Plt Count Neut % (Auto) Lymph % (Auto) [place] % (Auto) Eos % (Auto) Baso % (Auto) Neut # (Auto) Lymph # (Auto) [place] # (Auto) Eos # (Auto) Baso # (Auto) PT INR APTT ABG pH ABG pCO2 ABG pO2 ABG HCO3 ABG Total CO2 ABG O2 Saturation ABG Base Excess FiO2 Sodium 135 L Potassium 4.0 Chloride 96 L Carbon Dioxide 30 BUN 11 Creatinine 0.70 Estimated GFR > 60.0 BUN/Creatinine Ratio 15.7 Glucose 168 H Lactate Calcium 7.7 L Magnesium Total Bilirubin 0.6 AST 75 H ALT 65 Alkaline Phosphatase 54 Total Creatine Kinase CK-MB (CK-2) CK-MB (CK-2) Rel Index Troponin I B-Natriuretic Peptide Total Protein 6.0 L Albumin 3.1 L Globulin 2.9 Albumin/Globulin Ratio 1.1 Procalcitonin Nasal Screen MRSA (PCR) Assessment & Plan Assessment Narrative: A 57-year-old male admitted to the hospital with acute hypoxemic respiratory failure secondary to influenza a, present on admission. Multi focal pneumonia, present on admission, secondary to influenza a unable to rule out bacterial pneumonia Hypertension, oral meds on hold given low blood pressure associated with acute illness Hyperlipidemia, chronic, present on admission Hypokalemia, acute, present on admission, resolved Hyponatremia, acute, present on admission, now resolved Plan Narrative: Patient will continue on IV antibiotics, will await cardiac echo results, will continue Tamiflu. Will continue to taper oxygen accordingly. Will await respiratory panel. Will continue to hold blood pressure medications at this time. Patient will be transferred to the medical floor.
--- NOTE | 2018-08-13 10:32 | CM.DANOTE ---
DCP: Case received, EMR reviewed and met with patient. Introduced self and role. DCP template completed with information currently available. Patient is a 57 year old male who admitted yesterday evening to the care of the hospitalist team. PCP: [facility]. Payer: confirmed: [facility]. Patient came to hospital via family vehicle secondary to weakness and shortness of breath. Patient holds diagnosis of Influenza A, Pneumonia, as well as ARDS. Met briefly with patient, he is in isolation. Alert and oriented and is employed at [employer]. Lives with his spouse in [place]. Patient did not have a primary doctor listed on his face sheet, for he stated that his doctor recently retired. He stated that he gets his medical care at [facility], and is unsure as of yet who his new medical provider will be. P: DCP to continue to follow closely. Patient should be able to go home when he is medically stable. Anticipate him being here a couple more days. Candice Reaves RN/[employer]
[2018-08-13 11:46] LABS: Adenovirus Not Detected (Not Detect); Coronavirus 229E Not Detected (Not Detect); Coronavirus HKU1 Not Detected (Not Detect); Coronavirus NL 63 Not Detected (Not Detect); Coronavirus OC43 Not Detected (Not Detect); Human Metapneumovirus Not Detected (Not Detect); Human Rhinovirus/Enterovirus Not Detected (Not Detect); Influenza A Detected (Not Detect)
[2018-08-13 11:47] LABS: Bordetella pertussis Not Detected (Not Detect); Chlamydophila pneumoniae Not Detected (Not Detect); Influenza B Not Detected (Not Detect); Mycoplasma pneumoniae Not Detected (Not Detect); Parainfluenza Virus 1 Not Detected (Not Detect); Parainfluenza Virus 2 Not Detected (Not Detect); Parainfluenza Virus 3 Not Detected (Not Detect); Parainfluenza Virus 4 Not Detected (Not Detect); Respiratory Syncytial Virus Not Detected (Not Detect)
[2018-08-13] MEDS: KCL 20 MEQ IN NS 1,000 ML 84 MEQ IV (12:11)
[2018-08-13] MEDS: levoFLOXacin 750 MG/150 ML PIGGYBACK 100 MG IV (20:03)
[2018-08-13] MEDS: ATORVASTATIN 20 MG TABLET 40 MG PO (21:08)
[2018-08-13] MEDS: DOCUSATE 100 MG CAPSULE PO (21:08)
[2018-08-13] MEDS: ENOXAPARIN 40 MG/0.4 ML SYRINGE SUBCUT (21:09)
[2018-08-14] VITALS (10 sets, daily range): BP systolic 112–130; BP diastolic 66–73; PULSE 68–79; RESP 18–22; TEMP 36.7–37.6; O2SAT 85–96
[2018-08-14] MEDS: ROPINIROLE 0.25 MG TABLET PO ×2 (00:06→21:14)
[2018-08-14] MEDS: KCL 20 MEQ IN NS 1,000 ML 84 MEQ IV ×2 (00:06→11:56)
--- NOTE | 2018-08-14 04:04 | PC.NURSE ---
services advisor Pt desated to 85, respiratory came and adjusted to settings on heated high flow O2 to 60FiO2 and 50L/hr, and HOB was elevated. Sats were 95%.
[2018-08-14 06:00] LABS: Add Manual Diff / Slide Review NO; Basophils Absolute Auto 0 /uL (0-100); Basophils Percent Auto 0.1 % (0-2); Eosinophils Absolute Auto 0 /uL (0-450); Hematocrit 40.7 % (41-53); Hemoglobin 13.6 g/dL (13.5-17.5); Lymphocytes Absolute Auto 600 /uL (1100-4500); Lymphocytes Percent Auto 5.6 % (25-40); Mean Corpuscular HGB Conc 33.4 % (30-36); Mean Corpuscular Hemoglobin 28.9 PG (26-34); Mean Corpuscular Volume 86.3 fL (80-100); Monocytes Absolute Auto 800 /uL (0-900); Monocytes Percent Auto 7.8 % (3-14); Neutrophils Absolute Auto 8600 /uL (1500-7000); Neutrophils Percent Auto 86.5 % (50-75); Platelet Count 209 X10^3/uL (150-400); Red Blood Cell Count 4.72 X10^6/uL (4.5-5.9); Red Cell Distribution Width 13.6 % (11.6-14.8)
[2018-08-14 06:03] LABS: Blood Urea Nitrogen 14 mg/dL (9-20); Carbon Dioxide 28 mmol/L (22-32); Chloride 103 mmol/L (98-107); Estimated Glomerular Filt Rate > 60.0 mL/min (>60); Glucose 123 mg/dL (70-100); HEMOLYSIS < 15 (0-50); Potassium 4.2 mmol/L (3.4-5.1); Sodium 138 mmol/L (137-145)
[2018-08-14] MEDS: OSELTAMIVIR 75 MG CAPSULE PO ×2 (09:17→21:14)
--- NOTE | 2018-08-14 14:37 | PM.PN.1 ---
Subjective Date Patient Seen: 08/14/18 Interval history: Now productive with green phlegm. Patient seen examined chart reviewed. Patient feels a little bit better. However he still feels short of breath. He also notes chest pain with deep inspiration he continues to have a cough. Cough is productive with green phlegm. Exam Vital Signs (past 8 hours): - 08/14/18 08:01 08/14/18 11:00 08/14/18 11:30 Temperature 98.0 F Pulse Rate 69 Respiratory Rate 22 Blood Pressure 112/68 Pulse Oximetry 93 96 96 Fraction of Inspired Oxygen 40 Oxygen Delivery Method Heated High Flow Oxygen Flow Rate 45 Narrative Exam Narrative: Ill appearing male still on high-flow oxygen. His he did oxygen has been decreased from 50% to 45%. Lungs: Decreased breath sounds with occasional crackles bilaterally Cardiac exam: Regular rate and rhythm normal S1-S2 Abdomen: Soft nontender nondistended Extremities: No edema Echocardiogram: Reveals normal LV ejection fraction, EF 60-65% mildly dilated left atrium, mild mitral regurgitation. Objective Labs Result Diagrams: 08/14/18 05:24 08/14/18 05:24 Labs: Laboratory Results - last 24 hr 08/14/18 08/14/18 05:24 05:24 WBC 10.0 D RBC 4.72 Hgb 13.6 Hct 40.7 L MCV 86.3 D MCH 28.9 MCHC 33.4 RDW 13.6 Plt Count 209 Neut % (Auto) 86.5 H Lymph % (Auto) 5.6 L [place] % (Auto) 7.8 Eos % (Auto) 0.0 L Baso % (Auto) 0.1 Neut # (Auto) 8600 H Lymph # (Auto) 600 L [place] # (Auto) 800 Eos # (Auto) 0 Baso # (Auto) 0 Sodium 138 Potassium 4.2 Chloride 103 Carbon Dioxide 28 BUN 14 Creatinine 0.70 Estimated GFR > 60.0 BUN/Creatinine Ratio 20.0 Glucose 123 H Calcium 8.0 L Assessment & Plan Assessment Narrative: Acute hypoxemic respiratory failure secondary to influenza a, present on admission Multifocal pneumonia, secondary to influenza a, present on admission Hypertension, chronic Hyperlipidemia, chronic Hyponatremia, present on admission, resolved Hypokalemia, present on admission resolved Plan Narrative: Will continue to taper oxygen as tolerated. Will continue Tamiflu and IV antibiotics. Will continue usual home medications as well.
[2018-08-14 15:47] LABS: B Type Natriuretic Peptide 292 (<100)
[2018-08-14] MEDS: ACETAMINOPHEN 325 MG TABLET 650 MG PO (15:55)
[2018-08-14] MEDS: ALBUTEROL/IPRATROPIUM 3 ML AMPUL INH ×2 (16:26→23:55)
[2018-08-14] MEDS: levoFLOXacin 750 MG/150 ML PIGGYBACK 100 MG IV (19:01)
[2018-08-14] MEDS: DOCUSATE 100 MG CAPSULE PO (21:14)
[2018-08-14] MEDS: ATORVASTATIN 20 MG TABLET 40 MG PO (21:14)
[2018-08-14] MEDS: ENOXAPARIN 40 MG/0.4 ML SYRINGE SUBCUT (21:14)
--- NOTE | 2018-08-14 22:07 | PC.NURSE ---
Pt resting in bed most of the shift. At the beginning of the shift he was on 7L sats 84-88%, increased to 8L sats 88-92% while awake then when sleeping pts sats dropped to 78%. RT came up and put pt back on HHF and now is at 50% FIO2 w/sats 92-95%. Pt has been calm and cooperative.
[2018-08-15] VITALS (12 sets, daily range): BP systolic 125–147; BP diastolic 70–77; PULSE 75–92; RESP 16–24; TEMP 36.3–37.7; O2SAT 92–98
[2018-08-15] MEDS: IBUPROFEN 600 MG TABLET PO ×2 (00:16→16:19)
[2018-08-15] MEDS: ALBUTEROL/IPRATROPIUM 3 ML AMPUL INH ×2 (05:08→11:39)
[2018-08-15] MEDS: OSELTAMIVIR 75 MG CAPSULE PO ×2 (08:51→21:37)
--- NOTE | 2018-08-15 13:34 | PC.NURSE ---
Patient states he is feeling better today, lungs clearer but still diminished at bases. Oxygen per RT, still on heated high flow with cont. pulse ox 92-95%. SB assist with urinal, also in room assisting patient. Patient denies pain. Call light within reach. Continue to monitor.
--- NOTE | 2018-08-15 15:30 | PM.PN.1 ---
Subjective Date Patient Seen: 08/15/18 Interval history: Patient continues to be markedly hypoxic. He also reports feeling ill continues to have cough and is very short of breath. He remains on high-flow oxygen at 50%. He has really made no significant improvement. Review of his CT scan shows the following :Trace bilateral pleural effusions with adjacent atelectasis. There are extensive bilateral widespread subpleural areas of consolidation and groundglass opacity. There is some bronchovascular distribution. Patient appears to have ARDS. He is not intubated. The patient does report penicillin allergy as a child but does not recall exactly what happened. He is on Tamiflu and levofloxacin. Given his significant hypoxemia and increased oxygen requirements will add ceftazidime to his regimen. Explained to the patient that if he does not make significant improvement tomorrow would consider transfer to a higher level of care. Exam Vital Signs (past 8 hours): - 08/15/18 08:33 08/15/18 11:41 08/15/18 11:48 Temperature 97.3 F L 99.9 F H Pulse Rate 75 83 87 Respiratory Rate 20 20 18 Blood Pressure 125/70 135/77 Pulse Oximetry 97 92 94 08/15/18 12:20 08/15/18 12:35 08/15/18 12:50 Temperature Pulse Rate Respiratory Rate Blood Pressure Pulse Oximetry 98 98 97 Fraction of Inspired Oxygen 0.4 Oxygen Delivery Method Heated High Flow Oxygen Flow Rate 40 Narrative Exam Narrative: Ill appearing male very short of breath Lungs: Decreased breath sounds with diffuse rhonchi and crackles Cardiac exam: Regular rate rhythm normal S1-S2 Abdomen: Soft nontender nondistended without hepatosplenomegaly Extremities: No edema Objective Labs Result Diagrams: 08/14/18 05:24 08/14/18 05:24 Labs: Laboratory Results - last 24 hr 08/14/18 05:24 B-Natriuretic Peptide 292 H Assessment & Plan Assessment & Plan narrative: Acute hypoxemic respiratory failure secondary to influenza, present on admission Probable ARDS, present on admission Rule out superimposed bacterial pneumonia, present on admission Hypertension Hyperlipidemia Patient will be placed on ceftazidime in addition to levofloxacin. Will continue high-flow oxygen. Will continue Tamiflu. The patient does not appear to me baking significant improvement. Will reassess tomorrow. If he continues to require high-flow oxygen would recommend transfer to a higher level of care for pulmonary and/id support.
[2018-08-15] MEDS: levoFLOXacin 750 MG/150 ML PIGGYBACK 100 MG IV (18:30)
[2018-08-15] MEDS: ATORVASTATIN 20 MG TABLET 40 MG PO (21:35)
[2018-08-15] MEDS: ENOXAPARIN 40 MG/0.4 ML SYRINGE SUBCUT (21:36)
[2018-08-15] MEDS: ROPINIROLE 0.25 MG TABLET PO (21:37)
--- NOTE | 2018-08-15 22:37 | PC.NURSE ---
Patient rested in bed for most of shift. Still on heated high flow with continuous pulse ox. O2 sats 92-93%. Lungs sounds coarse and diminished bilaterally at base. Unable to obtain sputum sample. Patient did not have productive cough this shift. Patient complained of headache 4/10 pain level. Pain controlled with ibuprofen. Started Ceftazidime 2gm, no adverse reaction. is assisting patient at this time. Call light is within reach.
[2018-08-16] VITALS: BP 133/77; PULSE 72; RESP 20; TEMP 37.1; O2SAT 92
[2018-08-16] MEDS: METOCLOPRAMIDE HCL 10 MG TABLET PO (01:11)
[2018-08-16 01:42] VITALS: RESP 22; O2SAT 96
[2018-08-16 04:00] VITALS: BP 130/65; PULSE 76; RESP 20; TEMP 36.7; O2SAT 95
--- NOTE | 2018-08-16 04:50 | PC.NURSE ---
[employer] Note: 0030: Awake, resting in bed. Remains on HHFNC at 50L and 40%. Vital signs stable. IV in place in rt forearm. Remains in droplet precautions. at bedside. 0100: Pt feeling anxious and wanting something to help him relax. LILO Snyder notified. 0400: Sleeping intermittently. More relaxed now, resting.
[2018-08-16 05:40] LABS: Add Manual Diff / Slide Review NO; Basophils Absolute Auto 0 /uL (0-100); Basophils Percent Auto 0.1 % (0-2); Eosinophils Absolute Auto 0 /uL (0-450); Eosinophils Percent Auto 0.1 % (2-4); Hematocrit 40.5 % (41-53); Lymphocytes Absolute Auto 1000 /uL (1100-4500); Lymphocytes Percent Auto 11.6 % (25-40); Mean Corpuscular HGB Conc 34.6 % (30-36); Mean Corpuscular Hemoglobin 28.7 PG (26-34); Mean Corpuscular Volume 82.9 fL (80-100); Monocytes Absolute Auto 600 /uL (0-900); Monocytes Percent Auto 7.7 % (3-14); Neutrophils Absolute Auto 6600 /uL (1500-7000); Neutrophils Percent Auto 80.5 % (50-75); Platelet Count 285 X10^3/uL (150-400); Red Blood Cell Count 4.88 X10^6/uL (4.5-5.9); White Blood Cell Count 8.2 X10^3/uL (4.5-11.0)
[2018-08-16 05:45] LABS: Alanine Aminotransferase 68 IU/L (21-72); Albumin 2.9 g/dL (3.5-5.0); Albumin Globulin Ratio 0.9 (1.0-2.8); Alkaline Phosphatase 55 U/L (38-126); Aspartate Aminotransferase 44 IU/L (17-59); BUN Creatinine Ratio 14.3 (6-22); Bilirubin Total 1.6 mg/dL (0.2-1.3); Blood Urea Nitrogen 10 mg/dL (9-20); Carbon Dioxide 28 mmol/L (22-32); Chloride 101 mmol/L (98-107); Estimated Glomerular Filt Rate > 60.0 mL/min (>60); Globulin 3.1 g/dL (1.7-4.1); Glucose 97 mg/dL (70-100); HEMOLYSIS < 15 (0-50); Potassium 3.9 mmol/L (3.4-5.1); Sodium 137 mmol/L (137-145)
[2018-08-16 08:00] VITALS: BP 143/72; PULSE 82; RESP 20; TEMP 37.9; O2SAT 93
--- NOTE | 2018-08-16 08:00 | DI.RAD.S_ITS ---
PROCEDURE: XR CHEST 1V INDICATIONS: shortness of breath/pneumonia TECHNIQUE: One view of the chest was acquired. COMPARISON: [facility], CR, XR CHEST 1V, 08/13/2018, 6:24. FINDINGS: Surgical changes and devices: None. Lungs and pleura: The prominent perihilar interstitial markings are identified with additional areas of consolidation noted at the bilateral lung bases in the inferior right upper lobe. These findings do not appear to have progressed in the interim. Mediastinum: Mediastinal contours appear normal. Heart size is normal. Bones and chest wall: No suspicious bony lesions. Overlying soft tissues appear unremarkable. IMPRESSION: Patchy bilateral pneumonia is predominantly seen within the perihilar regions, not significantly progressed. Dictated by: Toi Askew M.D. on 08/16/2018 at 8:44 Approved by: Toi Askew M.D. on 08/16/2018 at 8:48
[2018-08-16] MEDS: OSELTAMIVIR 75 MG CAPSULE PO (08:32)
[2018-08-16] MEDS: DOCUSATE 100 MG CAPSULE PO (08:32)
[2018-08-16] MEDS: SODIUM CHLORIDE 0.9% FLUSH 10 ML IV (08:33)
[2018-08-16] MEDS: IBUPROFEN 600 MG TABLET PO (08:35)
[2018-08-16 08:50] LABS: HCO3 ABG 23 mmol/L (22-26); Oxygen Saturation ABG 93 % (95-100); PCO2 ABG 30.9 mmHg (35-45); PO2 ABG 59 mmHg (80-100); TCO2 ABG 24 mmol/L (21-31); pH ABG 7.49 (7.35-7.45)
[2018-08-16 08:51] LABS: Fractionated Inspired Oxygen 40
--- NOTE | 2018-08-16 11:38 | P.PN_ITS ---
Subjective Date Patient Seen: 08/16/18 Interval history: Patient continues to be significantly hypoxic. He continues to have a cough. He feels weak. He reports no appetite. Overall he feels that he has made minimal improvement. Exam Vital Signs (past 8 hours): - 08/16/18 04:00 08/16/18 08:00 Temperature 98.1 F 100.2 F H Pulse Rate 76 82 Respiratory Rate 20 20 Blood Pressure 130/65 143/72 H Pulse Oximetry 95 93 Fraction of Inspired Oxygen 40 Oxygen Delivery Method High Flow Nasal Cannula,Humidification Oxygen Flow Rate 50 Narrative Exam Narrative: Ill appearing male on a 50% heated high-flow mask Lungs: Decreased breath sounds with scattered rhonchi bilateral Cardiac exam: Regular rate and rhythm normal S1-S2 Abdomen: Soft nontender nondistended Extremities: No Repeat chest x-ray showed patchy bilateral hilar infiltrate unchanged ABG on 40% high-flow revealed a pH is 7.48 pCO2 of 30.9 PO2 of 59 bicarb 23 sec duration 93% Objective Labs Result Diagrams: 08/16/18 05:11 08/16/18 05:11 Labs: Laboratory Results - last 24 hr 08/16/18 08/16/18 08/16/18 05:11 05:11 08:30 WBC 8.2 RBC 4.88 Hgb 14.0 Hct 40.5 L MCV 82.9 D MCH 28.7 MCHC 34.6 RDW 13.0 Plt Count 285 Neut % (Auto) 80.5 H Lymph % (Auto) 11.6 L [place] % (Auto) 7.7 Eos % (Auto) 0.1 L Baso % (Auto) 0.1 Neut # (Auto) 6600 Lymph # (Auto) 1000 L [place] # (Auto) 600 Eos # (Auto) 0 Baso # (Auto) 0 ABG pH 7.49 H ABG pCO2 30.9 L ABG pO2 59 L ABG HCO3 23 ABG Total CO2 24 ABG O2 Saturation 93 L ABG Base Excess 0.0 FiO2 40 Sodium 137 Potassium 3.9 Chloride 101 Carbon Dioxide 28 BUN 10 Creatinine 0.70 Estimated GFR > 60.0 BUN/Creatinine Ratio 14.3 Glucose 97 Calcium 8.0 L Total Bilirubin 1.6 H AST 44 ALT 68 Alkaline Phosphatase 55 Total Protein 6.0 L Albumin 2.9 L Globulin 3.1 Albumin/Globulin Ratio 0.9 L Assessment & Plan Assessment & Plan narrative: 1. Acute hypoxemic respiratory failure secondary to 2. Influenza A 3. Probable superimposed bacterial pneumonia 4. Hypertension 5. Hyperlipidemia Plan the patient will continue on high-flow oxygen, Tamiflu, IV antibiotics to include ceftazidime and levofloxacin. Will consult Pulmonary to determine if there are other efficacious treatments to implement. He will continue on losartan and atorvastatin for his blood pressure and hyperlipidemia. Patient is very ill. Will continue to monitor him closely. Consider transfer to a higher level of care if no significant improvement.
[2018-08-16 12:00] VITALS: BP 140/83; PULSE 78; RESP 18; TEMP 37.5; O2SAT 92
--- NOTE | 2018-08-16 12:42 | PM.DS.1 ---
History of Present Illness Chief complaint: states severe flu Narrative: THE PATIENT IS A 57-YEAR-OLD MALE WHO PRESENTS AT THIS TIME FOR ACUTE HYPOXIC RESPIRATORY FAILURE. PATIENT WAS IN HIS USUAL STATE OF HEALTH UNTIL ABOUT 1 WEEK PRIOR TO ADMISSION. HE DEVELOPED COUGH SHORTNESS OF BREATH AND ACHY PAINS. SYMPTOMS STARTED LAST MONDAY. THEY BECAME PROGRESSIVELY WORSE. PATIENT FELT QUITE ILL ON MONDAY AND MONDAY OF LAST WEEK AND PRESENTED TO THE EMERGENCY ROOM FOR EVALUATION. IN THE EMERGENCY ROOM THE PATIENT WAS DIAGNOSED WITH INFLUENZA A. HE WAS OUTSIDE OF THE WINDOW HE WAS NOT GIVEN TAMIFLU. HE STATES HE FELT BETTER AFTER 1 DOSE OF TORADOL. HE SUBSEQUENTLY BEGAN FEELING ACHY SHORT OF BREATH WITH FEVER HEADACHES NAUSEA AND DIARRHEA. SYMPTOMS PROGRESSED AND HE PRESENTED BACK TO THE EMERGENCY ROOM FOR EVALUATION. IN THE EMERGENCY ROOM THE PATIEN FEELS ILL BUT SOMEWHAT BETTER. HE DENIES ANY HEMOPTYSIS. T WAS FOUND TO BE MARKEDLY HYPOXIC. HIS O2 SAT ON ROOM AIR WAS IN THE 70% RANGE. THE PATIENT REQUIRED A NON-REBREATHER MASK. HE WAS ULTIMATELY TAPERED TO 15 L OF HIGH-FLOW OXYGEN. HIS CHEST X-RAY SHOWED A MULTIFOCAL PNEUMONIA. CT SCAN OF THE CHEST ALSO CONFIRMED A MULTIFOCAL PNEUMONIA. THERE WAS NO EVIDENCE OF PULMONARY EMBOLI. PATIENT WAS GIVEN 1 DOSE OF LASIX. HE REPORTS CHEST PAIN WITH DEEP INSPIRATION. HE HAS A NONPRODUCTIVE COUGH. HE HAS NO HISTORY OF ASTHMA. HE IS A NONSMOKER. THE PATIENT IS ADMITTED TO THE HOSPITAL FOR FURTHER EVALUATION. THE PATIENT IS ADOPTED AND FAMILY HISTORY IS UNOBTAINABLE. Discharge Providers Date of admission: 08/12/18 20:09 Consults: 08/12/18 17:44 Consult to Respiratory Therapy Evaluate & Treat Comment: Physician Instructions: Evaluate and treat Discharge provider: Maegan Toure MD Discharge Date: 08/16/18 Summary Discharge Diagnosis: Acute hypoxemic respiratory failure Acute extensive bilateral upper lobe pneumonia Influenza A Probable cyst probable superimposed bacterial pneumonia Hypertension Hyperlipidemia Hospital Course: The patient is a 57-year-old male who was admitted to the hospital for acute hypoxemic respiratory failure, influenza a. The patient was treated with Tamiflu, and treated with IV antibiotics to include Levaquin cloxacillin and ceftazidime. Despite this the patient continued to require high-flow oxygen. He has remained on 50% high-flow heated oxygen throughout his hospital stay. He did have a CT scan of the chest which showed extensive bilateral lower and upper lobe areas of consolidation with ground-glass attenuation suspicious for viral pneumonia. He blood and sputum cultures thus far have been negative. The patient has made minimal amount of improvement. However he continues to require significant amount of oxygen to maintain his saturation. ABG obtained this morning on 40% 50 the L high-flow oxygen showed a pH of 7.48 pCO2 of 30.9 PO2 of 59 bicarb 23.4 with a saturation of 93%. As the patient has not significantly improved since admission arrangements have been made to transfer him to a higher level of care. I spoke to the hospitalist for [place] at, [facility]. They have graciously agreed to accept the patient in transfer. I have explained this to the patient and his who concur with the plan. Status at Discharge Functional status at discharge: independent ambulation Overall status at discharge: patient is not back to baseline Time Spent with Patient Greater than 30 minutes Exam Vital Signs (past 8 hours): - 08/16/18 08:00 08/16/18 12:00 Temperature 100.2 F H 99.5 F Pulse Rate 82 78 Respiratory Rate 20 18 Blood Pressure 143/72 H 140/83 Pulse Oximetry 93 92 Fraction of Inspired Oxygen 40 Oxygen Delivery Method High Flow Nasal Cannula,Humidification Oxygen Flow Rate 50 Narrative Exam Narrative: Ill appearing male short of breath Lungs: Scattered rhonchi bilateral Cardiac exam: Regular rate rhythm normal S1-S2 Abdomen: Soft nontender nondistended Extremities: Trace edema Objective Labs Result Diagrams: 08/16/18 05:11 08/16/18 05:11 Labs: Laboratory Results - last 24 hr 08/16/18 08/16/18 08/16/18 05:11 05:11 08:30 WBC 8.2 RBC 4.88 Hgb 14.0 Hct 40.5 L MCV 82.9 D MCH 28.7 MCHC 34.6 RDW 13.0 Plt Count 285 Neut % (Auto) 80.5 H Lymph % (Auto) 11.6 L [place] % (Auto) 7.7 Eos % (Auto) 0.1 L Baso % (Auto) 0.1 Neut # (Auto) 6600 Lymph # (Auto) 1000 L [place] # (Auto) 600 Eos # (Auto) 0 Baso # (Auto) 0 ABG pH 7.49 H ABG pCO2 30.9 L ABG pO2 59 L ABG HCO3 23 ABG Total CO2 24 ABG O2 Saturation 93 L ABG Base Excess 0.0 FiO2 40 Sodium 137 Potassium 3.9 Chloride 101 Carbon Dioxide 28 BUN 10 Creatinine 0.70 Estimated GFR > 60.0 BUN/Creatinine Ratio 14.3 Glucose 97 Calcium 8.0 L Total Bilirubin 1.6 H AST 44 ALT 68 Alkaline Phosphatase 55 Total Protein 6.0 L Albumin 2.9 L Globulin 3.1 Albumin/Globulin Ratio 0.9 L Discharge Plan Discharge Plan Discharge Problem: Influenza A, Acute respiratory distress, Hypoxia, Pneumonia Patient Disposition: [facility] Transfer to: [facility] Under care of provider: [facility] Discharge Med Rec/Prescriptions Prescriptions: New acetaminophen 325 mg Tablet 650 mg PO Q6HR PRN (Reason: As Needed For Fever/Mild Pain) Qty: 30 RF: 0 docusate sodium 100 mg Capsule 100 mg PO BID 5 Days Qty: 10 RF: 0 oseltamivir [Tamiflu] 75 mg Capsule 75 mg PO BID 1 Days Qty: 2 RF: 0 ropinirole [Requip] 0.25 mg Tablet 0.25 mg PO BEDTIME 30 Days RF: 0 albuterol sulfate 2.5 mg /3 mL (0.083 %) Solution For Nebulization 2.5 mg INH [id number] PRN (Reason: Shortness Of Breath) 7 Days RF: 0 ipratropium-albuterol 0.5 mg-3 mg(2.5 mg base)/3 mL Solution For Nebulization 3 ml INH RTQ6HR PRN (Reason: Shortness Of Breath) 7 Days RF: 0 ceftazidime 2 gram recon soln 2 gram IM Q8H 10 Days RF: 0 levofloxacin in D5W 750 mg/150 mL piggyback 750 mg IV Q24H Qty: 150 RF: 0 bisacodyl 5 mg Tablet,Delayed Release (Dr/Ec) 10 mg PO DAILY PRN (Reason: Constipation) 5 Days RF: 0 Continued losartan 50 mg Tablet 50 mg PO DAILY RF: 0 atorvastatin 40 mg Tablet 40 mg PO DAILY RF: 0 ondansetron 4 mg tablet,disintegrating 4 mg PO Q6-8H PRN (Reason: nausea and vomiting) Qty: 10 RF: 0 Discharge Orders: Discharge (Order); Ordered 08/16/18 Ordered By: Maegan Toure Discharge Health Status Precautions: Droplet Provider Discharge Instructions Diet: Low-sodium and Low-cholesterol Liquid consistency: Normal/Thin Food texture: Regular Activity: as tolerated Oxygen: 50% highflow heated oxygen Discharge Data Attending Provider: Maegan Toure Date/Time: 08/12/18 20:09
--- NOTE | 2018-08-16 13:24 | PC.NURSE ---
Set up patient transfer to [facility], spoke with Margarita at [facility] to inquire about setting up ambulance transfer. Was instructed to call [facility] for transport, spoke to Olive at [facility]. Olive at [facility] stated they could not come to [place] for an ALS transfer. Suggested this RN call [place] ambulance, shich was done and transport set up.
--- NOTE | 2018-08-16 13:39 | PC.NURSE ---
1340 Pt to transfer to [place] at 1400 [facility]x [facility] ambulance. Report called in at 1325. Pt aware of plans.
--- NOTE | 2018-08-16 14:40 | PC.NURSE ---
1440 Pt transfered out now via stretcher/ambulance.
== END 2018-08-16 14:41 | disposition short-term general hospital (02) | DRG 193 ==
LOC: ED 18:57 → ICU 08-13 08:53 → AC 08-14 19:17 → ICU 07-01 13:59
PROVIDERS: Emergency Medicine; Admitting Provider Internal Medicine; Emergency Provider Emergency Medicine; Visit Provider Internal Medicine
DX: J10.08 Influenza due to other identified influenza virus with other specified pneumonia (principal); J96.01 Acute respiratory failure with hypoxia; E87.1 Hypo-osmolality and hyponatremia; J15.9 Unspecified bacterial pneumonia; I10 Essential (primary) hypertension; E78.5 Hyperlipidemia, unspecified; E87.6 Hypokalemia; R91.8 Other nonspecific abnormal finding of lung field
CPT/HCPCS: 36415; 36591; 36600; 71045; 71275; 80048; 80053; 82550; 82553; 82805; 83605; 83735; 83880; 84145; 84484; 85025; 85610; 85730; 87040; 87633; 87797; 93005; 93306; 94640; 94760; 94762; 96365; 96366; 96375; 99285; J0713; J1650; J1940; J1956; J2405; J2930; J3480; J7613; Q9967

== ENCOUNTER 2023-11-20 17:30 | Emergency (ER) | payer OTHER, SELFPAY ==
[2023-11-20 17:31] VITALS: BMI 26.4
[2023-11-20 17:36] VITALS: BP 170/92; PULSE 82; RESP 16; TEMP 36.6; O2SAT 95; BMI 27.1
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
[2023-11-20] MEDS: ACETAMINOPHEN 325 MG TABLET 975 MG PO (18:38)
[2023-11-20] MEDS: KETOROLAC 30 MG/ML VIAL IM (18:39)
[2023-11-20 19:12] VITALS: BP 155/88; PULSE 75; RESP 16; O2SAT 99
== END 2023-11-20 19:07 | disposition home or self-care (01) ==
PROVIDERS: Emergency Provider Student in an Organized Health Care Education/Training Program
DX: S42.022A Displaced fracture of shaft of left clavicle, initial encounter for closed fracture (principal); V18.0XXA Pedal cycle driver injured in noncollision transport accident in nontraffic accident, initial encounter; Y93.55 Activity, bike riding
CPT/HCPCS: 73030; 96372; 99283; 99284; J1885

== ENCOUNTER → 2023-11-24 13:32 | Outpatient (CLI) | payer OTHER, SELFPAY ==
[2023-11-20 17:31] VITALS: BMI 26.4
[2023-11-24 15:38] LABS: Add Manual Diff / Slide Review NO; Basophils Absolute Auto 0 /uL (0-100); Basophils Percent Auto 0.6 % (0-2); Eosinophils Absolute Auto 200 /uL (0-450); Eosinophils Percent Auto 2.1 % (2-4); Hematocrit 42.6 % (41-53); Hemoglobin 14.8 g/dL (13.5-17.5); Lymphocytes Absolute Auto 2100 /uL (1100-4500); Lymphocytes Percent Auto 28.7 % (25-40); Mean Corpuscular HGB Conc 34.7 % (30-36); Mean Corpuscular Hemoglobin 29.9 PG (26-34); Mean Corpuscular Volume 86.1 fL (80-100); Monocytes Absolute Auto 400 /uL (0-900); Monocytes Percent Auto 5.3 % (3-14); Neutrophils Absolute Auto 4600 /uL (1500-7000); Neutrophils Percent Auto 63.3 % (50-75); Platelet Count 194 X10^3/uL (150-400); Red Blood Cell Count 4.95 X10^6/uL (4.5-5.9); Red Cell Distribution Width 13.1 % (11.6-14.8); White Blood Cell Count 7.3 X10^3/uL (4.5-11.0)
[2023-11-24 15:56] LABS: BUN Creatinine Ratio 16.7 (6-22); Blood Urea Nitrogen 16 mg/dL (9-20); Calcium 9.1 mg/dL (8.4-10.2); Carbon Dioxide 28 mmol/L (22-32); Chloride 105 mmol/L (98-107); Estimated Glomerular Filt Rate > 60 mL/min (>60); Glucose 95 mg/dL (80-110); HEMOLYSIS < 15 (0-50); Potassium 4.6 mmol/L (3.4-5.1); Sodium 141 mmol/L (137-145)
== END ==
PROVIDERS: PCP Family Medicine Sports Medicine; Referring Provider Orthopaedic Surgery Orthopaedic Surgery of the Spine; Visit Provider Orthopaedic Surgery Orthopaedic Surgery of the Spine
DX: Z01.818 Encounter for other preprocedural examination (principal); Z01.812 Encounter for preprocedural laboratory examination
CPT/HCPCS: 36415; 80048; 85025; 93005

== ENCOUNTER → 2024-01-24 08:34 | Outpatient (CLI) | payer OTHER, SELFPAY ==
[2024-01-24 10:32] LABS: Cholesterol 125 mg/dL (140-199); HDL Cholesterol 48 mg/dL (40-60); LDL Cholesterol Calculated 68 mg/dL (<100); Triglycerides 46 mg/dL (35-150)
[2024-01-24 11:02] LABS: Prostate Specific Antigen 1.43 ng/mL (0.10-4.00)
== END ==
LOC: LAB 08:36
PROVIDERS: PCP Family Medicine Sports Medicine; Referring Provider Family Medicine Sports Medicine; Visit Provider Family Medicine Sports Medicine
DX: Z12.5 Encounter for screening for malignant neoplasm of prostate (principal); N52.9 Male erectile dysfunction, unspecified; E78.5 Hyperlipidemia, unspecified
CPT/HCPCS: 36415; 80061; 84153; 84402; 84403